=== PATIENT | male | born 1970 | race Caucasian/White ===

== ENCOUNTER 2018-07-27 16:08 | Observation (INO) | payer OTHER ==
[2018-07-27] MEDS ORDERED: ASPIRIN 81 MG CHEWABLE TABLET ONE (16:43)
--- NOTE | 2018-07-27 16:46 | RAD REPORT ---
EXAM DESCRIPTION: RAD - Chest Single View - 07/27/2018 4:38 pm CLINICAL HISTORY: CHEST PAIN Chest pain. COMPARISON: No comparisons FINDINGS: Portable technique limits examination quality. The lungs are grossly clear. The heart is normal in size. Mildly tortuous thoracic aorta. No displace d fractures.Degenerative changes affect both AC joints. IMPRESSION: No acute intrathoracic process suspected.
[2018-07-27 16:50] LABS: Absolute Lymphocytes (CBC) 2.7 K/uL (0.7-4.9); Absolute Monocytes 0.9 K/uL (0.1-1.3); Absolute Neutrophil 6.1 K/uL (1.8-8.0); Basophils % 0.3 % (0-1.3); Eosinophils % 4.6 % (0-4.4); Hematocrit 38.9 % (39.6-49.0); Lymphocytes % 26.6 % (15.3-44.8); Monocytes % 8.8 % (3.3-12.3); RBC Red Blood Cell Count 4.46 M/uL (4.33-5.43)
[2018-07-27 16:51] LABS: Protime INR 1.04
[2018-07-27 17:06] LABS: Barbiturates NEGATIVE (NEGATIVE); Benzodiazepines NEGATIVE (NEGATIVE); Cocaine NEGATIVE (NEGATIVE); METHAMPHETAM NEGATIVE (NEGATIVE); Methadone NEGATIVE (NEGATIVE); Opiates NEGATIVE (NEGATIVE); Phencyclidine NEGATIVE (NEGATIVE); THC Cannibis NEGATIVE (NEGATIVE)
[2018-07-27 17:12] LABS: ALT/SGPT 29 U/L (12-78); AST/SGOT 28 U/L (15-37); Albumin 3.8 g/dL (3.4-5.0); Alkaline Phosphatase 77 U/L (45-117); BUN Blood Urea Nitrogen 14 mg/dL (7-18); Bicarbonate 24 mmol/L (21-32); Bilirubin Direct < 0.1 mg/dL (0-0.2); Bilirubin Total 0.3 mg/dL (0.2-1.0); Glucose Level 86 mg/dL (74-106); Magnesium 2.1 mg/dL (1.8-2.4); NT PRO-BNP 107 pg/mL (<125); Potassium 3.8 mmol/L (3.5-5.1); Protein, Total 7.8 g/dL (6.4-8.2); Sodium Level 139 mmol/L (136-145); Troponin (Emerg Dept Use Only) < 0.02 ng/mL (0.0-0.045)
[2018-07-27 17:29] LABS: Urine Blood NEGATIVE (NEG); Urine Glucose NEGATIVE (NEG); Urine Protein NEGATIVE (NEG); Urine Specific Gravity 1.015 (1.005-1.030); Urine pH 6.5 (5.0-7.0)
--- NOTE | 2018-07-27 18:11 | RAD REPORT ---
EXAM DESCRIPTION: CT - Angio Aorta For Dissection - 07/27/2018 5:58 pm CLINICAL HISTORY: Chest pain radiating to the back. CHEST PAIN COMPARISON: Chest Single View dated 07/27/2018 TECHNIQUE: CT angiography of the aorta was performed with MIPs. All CT scans are performed using dose optimization technique as appropriate and may include automated exposure control or mA/KV adjustment according to patient size. FINDINGS: A left aortic arch is present with normal branching pattern of the great vessels.No acute aortic finding is seen such as aneurysm, penetrating ulcer or dissection. The celiac axis, SMA, ALEYDA and renal arteries are widely patent. No evidence of pulmonary embolism. The lungs are clear. The liver demonstrates no focal mass or biliary dilatation.The spleen is absent. The pancreas, adrena l glands and kidneys are within normal limits for arterial phase imaging. No bowel obstruction, free fluid or abscess.Small fat containing left lower quadrant ventral hernia n oted.No pathologic enlarged lymphadenopathy identified. Prominent lumbar degenerative changes.Hardware is present in the proximal right femur. Central wedging deformity of the L3 vertebral body is present, age undetermined. IMPRESSION: No acute aortic finding is demonstrated. Central wedge compression fracture of L3 vertebral body, age undetermined, however may be acute or sharma bacute in time frame. MR imaging could be obtained for further clarification.
[2018-07-27] MEDS ORDERED: METOPROLOL TAR 25 MG TAB ONE (18:35)
--- NOTE | 2018-07-27 19:25 | ER ---
Nurse's Notes [facility] Name: Ruddy Goff Age: 47 yrs Sex: Male : 1970 Arrival Date: 07/27/2018 Time: 16:12 Bed 8 Private MD: Diagnosis: Chest pain, unspecified Presentation: 07/27 16:14 Presenting complaint: EMS states: INTERMITTENT CHEST PAIN x3 HR. Transition of care: bp TDCJ. Onset of symptoms was July 27, 2018 at 13:00. Risk Assessment: Do you want to hurt yourself or someone else? Patient reports no desire to harm self or others. Initial Sepsis Screen: Does the patient meet any 2 criteria? No. Patient's initial sepsis screen is negative. Does the patient have a suspected source of infection? No. Patient's initial sepsis screen is negative. Care prior to arrival: None. 16:14 Method Of Arrival: EMS: [facility] bp 16:14 Acuity: JUSTINA 2 bp Triage Assessment: 16:25 General: Behavior is. General: Appears in no apparent distress. comfortable, obese, bp Behavior is calm, cooperative, appropriate for age. Pain: Complains of pain in chest Pain currently is 5 out of 10 on a pain scale. at worst was 10 out of 10 on a pain scale. EENT: No deficits noted. Neuro: Level of Consciousness is awake, alert, obeys commands, Oriented to person, place, time, situation, Appropriate for age. Cardiovascular: No deficits noted. Rhythm is sinus rhythm. Respiratory: Airway is patent Respiratory effort is even, unlabored, Respiratory pattern is regular, symmetrical. GI: No signs and/or symptoms were reported involving the gastrointestinal system. : No signs and/or symptoms were reported regarding the genitourinary system. Derm: No deficits noted. Musculoskeletal: Circulation, motion, and sensation intact. Range of motion: intact in all extremities. Historical: - Allergies: 16:25 No Known Allergies; bp - Home Meds: 16:25 aspirin 81 mg Oral chew 1 tab once daily [Active]; atorvastatin 40 mg oral tab 1 tab bp once daily [Active]; hydrochlorothiazide 25 mg Oral tab 1 tab once daily [Active]; lactulose 10 gram/15 mL (15 mL) Oral soln 30 mL once daily [Active]; - PMHx: 16:25 Hypertension; Hyperlipidemia; Hernia; Hepatitis; bp - Immunization history:: Adult Immunizations up to date. - Social history:: Smoking status: Patient/guardian denies using tobacco. - Ebola Screening: : Patient negative for fever greater than or equal to 101.5 degrees Fahrenheit, and additional compatible Ebola Virus Disease symptoms Patient denies exposure to infectious person Patient denies travel to an Ebola-affected area in the 21 days before illness onset No symptoms or risks identified at this time. Screenin:42 Abuse screen: Denies threats or abuse. Denies injuries from another. Nutritional aj screening: No deficits noted. Tuberculosis screening: No symptoms or risk factors identified. Fall Risk None identified. Assessment: 16:40 General: Appears in no apparent distress. comfortable, Behavior is calm, cooperative, aj appropriate for age. Neuro: Level of Consciousness is awake, alert, obeys commands, Oriented to person, place, time, situation, Appropriate for age. Neuro: Reports paresthesias in left arm and left leg. Cardiovascular: Reports chest pain, Capillary refill < 3 seconds in bilateral fingers. Respiratory: Airway is patent Respiratory effort is even, unlabored, Respiratory pattern is regular, symmetrical. Derm: Skin is intact, is healthy with good turgor, Skin is pink, warm \T\ dry. normal. 19:45 General: Appears in no apparent distress. Behavior is calm, cooperative, appropriate ea for age. General: Pt complaining of headache, provider notified, medication order obtained, medication administered. Pt tolerated well. . Neuro: Level of Consciousness is awake, alert, obeys commands, Oriented to person, place, time, situation, Appropriate for age. Cardiovascular: Patient's skin is warm and dry. Respiratory: Airway is patent Respiratory effort is even, unlabored, Respiratory pattern is regular, symmetrical. GI: Abdomen is non-distended. Derm: Skin is pink, warm \T\ dry. 20:50 Reassessment: Patient and/or family updated on plan of care and expected duration. Pain ea level reassessed. Patient is alert, oriented x 3, equal unlabored respirations, skin warm/dry/pink. 21:14 Reassessment: Patient and/or family updated on plan of care and expected duration. Pain ea level reassessed. Patient is alert, oriented x 3, equal unlabored respirations, skin warm/dry/pink. Patient denies pain at this time. 22:29 Reassessment: Report called to receiving nurse on fourth floor. ea 23:04 Reassessment: Patient and/or family updated on plan of care and expected duration. Pain ea level reassessed. Patient is alert, oriented x 3, equal unlabored respirations, skin warm/dry/pink. Patient denies pain at this time. 23:48 Reassessment: Patient and/or family updated on plan of care and expected duration. Pain ea level reassessed. Patient is alert, oriented x 3, equal unlabored respirations, skin warm/dry/pink. Patient denies pain at this time. Vital Signs: 16:32 BP 135 / 81; Pulse 83; Resp 16; Temp 98; Pulse Ox 97% ; Weight 112.04 kg; Height 5 ft. bp 10 in. (177.80 cm); 16:55 BP 139 / 89 LA; jb1 16:55 BP 132 / 93 RA; jb1 18:55 BP 132 / 89; Pulse 84; Resp 17; Pulse Ox 99% on R/A; aj 21:00 BP 128 / 80; Pulse 75; Resp 18; Pulse Ox 99% ; ea 22:31 BP 121 / 80; Pulse 78; Resp 18; Temp 98.2; Pulse Ox 99% on R/A; ea 23:03 BP 117 / 73; Pulse 68; Resp 18; Pulse Ox 97% on R/A; ea 23:49 BP 113 / 70; Pulse 67; Resp 18; Pulse Ox 97% on R/A; ea 16:32 Body Mass Index 35.44 (112.04 kg, 177.80 cm) bp ED Course: 16:12 Patient arrived in ED. cp 16:13 Alistair Lopez MD is Attending Physician. binh 16:14 Alistair Adhikari PA is PHCP. cp 16:14 Juan Pablo Garland, RN is Primary Nurse. bp 16:16 Triage completed. bp 16:31 Arm band placed on. bp 16:38 XRAY Chest (1 view) In Process Unspecified. EDMS 16:42 Bed in low position. Call light in reach. Side rails up X2. guards with patient. aj 16:44 Maintain EMS IV. Dressing intact. Good blood return noted. Site clean \T\ dry. Gauge \T\ aj site: 20 to right AC. IV is patent, is intact. 16:52 Urine collected: clean catch specimen, clear, kenney colored, EKG done, by ED staff, jb1 reviewed by Alistair DUBOSE. 17:58 CT Aorta for Dissection In Process Unspecified. EDMS 18:05 CT completed. Patient tolerated procedure well. Patient moved back from CT. kw1 19:25 Abhijit Carrington MD is Hospitalizing Provider. cp 21:14 No provider procedures requiring assistance completed. Patient admitted, IV remains in ea place. 21:33 Primary Nurse role handed off by Juan Pablo Garland, PAMELA ed1 22:29 Tiffanie Raya, RN is Primary Nurse. ea Administered Medications: 16:36 CANCELLED (dose changed): Aspirin Chewable Tablet 324 mg PO once; 81 mg tablets x 4 aj 16:37 Drug: Aspirin 162 mg Route: PO; aj 17:22 Follow up: Response: No adverse reaction aj 18:30 Drug: Metoprolol 25 mg Route: PO; aj 19:50 Follow up: Response: No adverse reaction ea 19:49 Drug: Tylenol 1000 mg Route: PO; ea 20:30 Follow up: Response: No adverse reaction; Pain is decreased ea Outcome: 19:25 Decision to Hospitalize by Provider. cp 20:00 Instructed on the need for admit. ea 23:48 Condition: stable ea 23:52 Admitted to Med/surg accompanied by tech, room 427, with chart, Report called to ea Receiving nurse on fourth floor 23:54 Patient left the ED. ea Signatures: Dispatcher [employer] EDMS Juan Champagne jb1 Macey Calderon RN RN aj Anderson, Corey, MD MD cha Riggs, Erika, RECEPTION MANAGER RECEPTION MANAGER ed1 Alistair Adhikari PA PA cp Antunez, Elena, Juan Pablo Anderson RN, ea, RN RN bp Wilhelm, Kimberly kw1
--- NOTE | 2018-07-27 19:26 | EDPHYS ---
Physician Documentation [facility] Name: Ruddy Goff Age: 47 yrs Sex: Male : 1970 Arrival Date: 07/27/2018 Time: 16:12 Bed 8 Private MD: ED Physician Alistair Lopez HPI: 07/27 16:15 This 47 yrs old Male presents to ER via Unassigned with complaints of chest cp pain. 16:15 The patient or guardian reports chest pain that is located primarily in the substernal cp area. 16:15 Onset: today, and improved just prior to arrival. The pain radiates to back. Associated cp signs and symptoms: Pertinent negatives: abdominal pain, cough, diaphoresis, lower extremity pain, lower extremity swelling, recent travel, syncope. Patient is a [facility] resident who reports retrosternal chest pain that started today. Patient given 2 sublingual nitro prior to arrival and now reports pain resolved. Historical: - Allergies: 16:25 No Known Allergies; bp - Home Meds: 16:25 aspirin 81 mg Oral chew 1 tab once daily [Active]; atorvastatin 40 mg oral tab 1 tab bp once daily [Active]; hydrochlorothiazide 25 mg Oral tab 1 tab once daily [Active]; lactulose 10 gram/15 mL (15 mL) Oral soln 30 mL once daily [Active]; - PMHx: 16:25 Hypertension; Hyperlipidemia; Hernia; Hepatitis; bp - Immunization history:: Adult Immunizations up to date. - Social history:: Smoking status: Patient/guardian denies using tobacco. - Ebola Screening: : Patient negative for fever greater than or equal to 101.5 degrees Fahrenheit, and additional compatible Ebola Virus Disease symptoms Patient denies exposure to infectious person Patient denies travel to an Ebola-affected area in the 21 days before illness onset No symptoms or risks identified at this time. ROS: 16:20 Constitutional: Negative for body aches, chills, fever, poor PO intake. cp 16:20 Eyes: Negative for injury, pain, redness, and discharge. cp 16:20 Neck: Negative for pain with movement, pain at rest, stiffness, tenderness, bony cp tenderness. 16:20 Cardiovascular: Positive for chest pain, Negative for edema, palpitations. 16:20 Respiratory: Negative for cough, dyspnea on exertion, shortness of breath, wheezing. 16:20 Abdomen/GI: Negative for abdominal pain, nausea, vomiting, and diarrhea, constipation, black/tarry stool, rectal bleeding. 16:20 Back: Positive for radiated pain, Negative for decreased range of motion. 16:20 : Negative for urinary symptoms. 16:20 Skin: Negative for cellulitis, rash. 16:20 Neuro: Negative for altered mental status, dizziness, headache, loss of consciousness, cp speech changes, syncope, weakness. 16:20 All other systems are negative. Exam: 16:25 Constitutional: The patient appears in no acute distress, alert, awake, cp non-diaphoretic, non-toxic, well developed, well nourished. 16:25 Head/Face: Normocephalic, atraumatic. cp 16:25 Eyes: Periorbital structures: appear normal, Conjunctiva: normal, no exudate, no injection, Sclera: no appreciated abnormality, Lids and lashes: appear normal, bilaterally. 16:25 ENT: External ear(s): are unremarkable, Nose: is normal, Mouth: is normal, Posterior pharynx: is normal, airway is patent, no erythema, no exudate. 16:25 Neck: ROM/movement: is normal, is supple, without pain, no range of motions limitations, no meningismus, no nuchal rigidity. 16:25 Chest/axilla: Inspection: normal, Palpation: is normal, no crepitus, no tenderness. 16:25 Cardiovascular: Rate: normal, Rhythm: regular, Pulses: Pulses are 2+ in right radial artery and left radial artery. Heart sounds: murmur, not appreciated, Edema: is not appreciated, JVD: is not appreciated. 16:25 Respiratory: the patient does not display signs of respiratory distress, Respirations: normal, no use of accessory muscles, no retractions, no splinting, no tachypnea, labored breathing, is not present, Breath sounds: are clear throughout, no decreased breath sounds, no stridor, no wheezing. 16:25 Abdomen/GI: Inspection: abdomen appears normal, Palpation: abdomen is soft and non-tender, in all quadrants, rebound tenderness, is not appreciated, voluntary guarding, is not appreciated, involuntary guarding, is not appreciated. 16:25 Back: pain, that is mild. 16:25 Skin: cellulitis, is not appreciated, no rash present. 16:25 Neuro: Orientation: to person, place \T\ time. Mentation: is normal, Cerebellar function: is grossly normal, Motor: moves all fours, strength is normal, Sensation: no obvious gross deficits. 16:41 ECG was reviewed by the Attending Physician. cp Vital Signs: 16:32 BP 135 / 81; Pulse 83; Resp 16; Temp 98; Pulse Ox 97% ; Weight 112.04 kg; Height 5 ft. bp 10 in. (177.80 cm); 16:55 BP 139 / 89 LA; jb1 16:55 BP 132 / 93 RA; jb1 18:55 BP 132 / 89; Pulse 84; Resp 17; Pulse Ox 99% on R/A; aj 21:00 BP 128 / 80; Pulse 75; Resp 18; Pulse Ox 99% ; ea 22:31 BP 121 / 80; Pulse 78; Resp 18; Temp 98.2; Pulse Ox 99% on R/A; ea 23:03 BP 117 / 73; Pulse 68; Resp 18; Pulse Ox 97% on R/A; ea 23:49 BP 113 / 70; Pulse 67; Resp 18; Pulse Ox 97% on R/A; ea 16:32 Body Mass Index 35.44 (112.04 kg, 177.80 cm) bp MDM: 16:13 Patient medically screened. binh 18:25 The patient was given aspirin in the Emergency Department. cp 18:25 Differential diagnosis: abnormal EKG, acute myocardial infarction, acute pericarditis, cp esophagitis, pancreatitis, pleurisy, pneumonia, pneumothorax, pulmonary embolus, stable angina, thoracic aortic disection, unstable angina. LYNETTE Risk Score: 1- Known CAD, 1 - Recent [<24hrs] Severe Angina. Data reviewed: vital signs, nurses notes, lab test result(s), EKG, radiologic studies, CT scan, plain films, I have discussed the patient's presentation/case with the attending Emergency Department Physician; and as a result, I will admit patient. Test interpretation: by ED physician or midlevel provider: ECG, plain radiologic studies. 19:15 Physician consultation: Abhijit Carrington MD was called at 19:15, was contacted at 19:15, regarding admission, to the telemetry unit. patient's condition. 07/27 16:13 Order name: Basic Metabolic Panel; Complete Time: 17:17 cp 07/27 17:17 Interpretation: Normal except: GFR 81. cp 07/27 16:13 Order name: CBC with Diff; Complete Time: 17:02 cp 07/27 17:02 Interpretation: Normal except: HGB 12.8; HCT 38.9; PLT 421; RDW 15.7; EOSINOPHIL % 4.6. cp 07/27 16:13 Order name: LFT's; Complete Time: 17:17 cp 07/27 18:21 Interpretation: Normal except: GLOB 4.0; A/G 1.0. cp 07/27 16:13 Order name: Magnesium; Complete Time: 17:17 cp 07/27 16:13 Order name: NT PRO-BNP; Complete Time: 17:17 cp 07/27 16:13 Order name: PT-INR; Complete Time: 17:02 cp 07/27 16:13 Order name: Troponin (emerg Dept Use Only); Complete Time: 17:17 cp 07/27 16:20 Order name: UDS; Complete Time: 17:17 cp 07/27 17:00 Order name: Urine Dipstick--Ancillary (enter results); Complete Time: 18:00 ag 07/27 20:32 Order name: Basic Metabolic Panel EDMS 07/27 20:32 Order name: Basic Metabolic Panel EDMS 07/27 20:32 Order name: CBC with Automated Diff EDMS 07/27 20:32 Order name: CBC with Automated Diff EDMS 07/27 20:32 Order name: Lipid Profile EDMS 07/27 16:13 Order name: XRAY Chest (1 view); Complete Time: 17:02 cp 07/27 16:13 Order name: EKG; Complete Time: 16:15 cp 07/27 17:22 Order name: CT Aorta for Dissection; Complete Time: 18:20 cp 07/27 20:32 Order name: CONS Physician Consult EDMS 07/27 20:32 Order name: Heart Healthy EDMS 07/27 20:32 Order name: Echo with Doppler EDMS 07/27 20:32 Order name: EKG Electrocardiogram EDMS 07/27 20:32 Order name: EKG Electrocardiogram EDMS 07/27 20:32 Order name: Lipid Profile EDMS 07/27 20:32 Order name: Troponin I EDMS 07/27 20:32 Order name: Troponin I EDMS 07/27 20:32 Order name: Troponin I EDMS 07/27 16:13 Order name: Cardiac monitoring; Complete Time: 16:53 cp 07/27 16:13 Order name: EKG - Nurse/Tech; Complete Time: 16:53 cp 07/27 16:13 Order name: IV Saline Lock; Complete Time: 16:37 cp 07/27 16:13 Order name: Labs collected and sent; Complete Time: 16:37 cp 07/27 16:13 Order name: O2 Per Protocol; Complete Time: 16:37 cp 07/27 16:13 Order name: O2 Sat Monitoring; Complete Time: 16:37 cp 07/27 16:13 Order name: Blood Pressure Recheck: bilateral upper extremities; Complete Time: 16:53 cp EC:41 Rate is 80 beats/min. Rhythm is regular. ME interval is normal. QRS interval is normal. cp QT interval is normal. Interpreted by me. Reviewed by me. Administered Medications: 16:36 CANCELLED (dose changed): Aspirin Chewable Tablet 324 mg PO once; 81 mg tablets x 4 aj 16:37 Drug: Aspirin 162 mg Route: PO; aj 17:22 Follow up: Response: No adverse reaction aj 18:30 Drug: Metoprolol 25 mg Route: PO; aj 19:50 Follow up: Response: No adverse reaction ea 19:49 Drug: Tylenol 1000 mg Route: PO; ea 20:30 Follow up: Response: No adverse reaction; Pain is decreased ea Disposition: 07/28 07:17 Co-signature as Attending Physician, Alistair Lopez MD I agree with the assessment and [facility] plan of care. Disposition: 07/27/18 19:25 Hospitalization ordered by Abhijit Carrington for Observation. Preliminary diagnosis is Chest pain, unspecified. - Bed requested for Telemetry/MedSurg (observation). - Status is Observation. ea - Condition is Stable. - Problem is new. - Symptoms have improved. UTI on Admission? No Signatures: Dispatcher [employer] [facility] Mulu Colin RN Macey Spence RN RN aj Anderson, Corey, MD MD cha Page, Corey, PA PA cp Antunez, Elena, RN RN ea Peltier, Brian RN RN bp Corrections: (The following items were deleted from the chart) 07/27 16:36 16:20 Aspirin Chewable Tablet 324 mg PO once; 81 mg tablets x 4 ordered. cp aj 21:07 19:25 Hospitalization Ordered by Abhijit Carrington MD for Observation. Preliminary mw diagnosis is Chest pain, unspecified. Bed requested for Telemetry/MedSurg (observation). Status is Observation. Condition is Stable. Problem is new. Symptoms have improved. UTI on Admission? No. cp 23:54 21:07 07/27/2018 19:25 Hospitalization Ordered by Abhijit Carrington MD for Observation. ea Preliminary diagnosis is Chest pain, unspecified. Bed requested for Telemetry/MedSurg (observation). Status is Observation. Condition is Stable. Problem is new. Symptoms have improved. UTI on Admission? No. mw
[2018-07-27] MEDS ORDERED: ACETAMINOPHEN 500 MG TAB ONE (19:54)
[2018-07-27] MEDS ORDERED: ACETAMINOPHEN 500 MG TAB PO PRN (20:28)
[2018-07-27] MEDS ORDERED: ALPRAZOLAM 0.25 MG TABLET PO PRN (20:28)
[2018-07-27] MEDS ORDERED: ZOLPIDEM TARTRATE 5 MG TABLET PO PRN (20:28)
[2018-07-27] MEDS: METOPROLOL TAR 50 MG TAB PO SCH (21:00)
[2018-07-27 23:28] VITALS: BMI 35.4
[2018-07-28 01:00] VITALS: O2SAT 97
[2018-07-28] MEDS: MORPHINE 4 MG/ML SYR IV PRN ×2 (01:56→05:49)
--- NOTE | 2018-07-28 06:26 | EKG ---
Test Date: 2018-07-27 Test Time: 16:35:49 Sewing Department Supervisor: HERB MEASUREMENT RESULTS: Intervals: Rate: 80 MA: 154 QRSD: 96 QT: 394 QTc: 454 [place]: P: 26 MA: 154 QRS: -29 T: 39 INTERPRETIVE STATEMENTS: Normal sinus rhythm Minimal voltage criteria for LVH, may be normal variant Borderline ECG No previous ECG available for comparison Electronically Signed On 07-28-18 06:18:47 PRINTING GREY CLOTH TENDER by Hugo Martinez
[2018-07-28 06:42] LABS: Absolute Lymphocytes (CBC) 2.2 K/uL (0.7-4.9); Absolute Monocytes 0.9 K/uL (0.1-1.3); Absolute Neutrophil 4.5 K/uL (1.8-8.0); Basophils % 1.3 % (0-1.3); Eosinophils % 4.9 % (0-4.4); Hematocrit 39.8 % (39.6-49.0); Lymphocytes % 27.4 % (15.3-44.8); MPV 8.1 fL (7.6-11.3); Monocytes % 11.2 % (3.3-12.3)
[2018-07-28 06:56] LABS: Potassium 4.2 mmol/L (3.5-5.1)
[2018-07-28] MEDS: METOPROLOL TAR 50 MG TAB PO SCH (08:44)
[2018-07-28] MEDS ORDERED: ASPIRIN 325 MG TAB PO SCH (09:00)
[2018-07-28] MEDS ORDERED: ENOXAPARIN 40 MG/0.4 ML SQ SCH (09:00)
[2018-07-28 09:36] VITALS: TEMP 97.9
--- NOTE | 2018-07-28 10:22 | P.HP ---
Certification for Inpatient Patient admitted to: Observation With expected LOS: <2 Midnights Patient will require the following post-hospital care: None Practitioner: I am a practitioner with admitting privileges, knowledge of patient current condition, hospital course, and medical plan of care. Services: Services provided to patient in accordance with Admission requirements found in Title 42 Section 412.3 of the Code of Federal Regulations Patient History Date of Service: 07/27/18 Reason for admission: Chest pain rule out acute coronary syndrome History of Present Illness: If patient is a 47-year-old gentleman who came into the hospital with chest pain. Pain was mainly in the sternal region. The was radiation to his left arm. He was brought into the hospital for evaluation. Attempted transfer to [facility] but the was no beds. Patient was ruled out for acute coronary syndromes. EKGs and troponins were negative. Patient be admitted for observation. Allergies No Known Allergies Allergy (Verified 07/27/18 22:38) Home Medications: Aspirin Chewable [Aspirin Chewable*] 81 mg PO DAILY 07/27/18 Atorvastatin Calcium 40 mg PO DAILY 07/27/18 Lactulose 10 gm PO DAILY 07/27/18 hydroCHLOROthiazide [Hydrochlorothiazide] 25 mg PO DAILY 07/27/18 - Past Medical/Surgical History Has patient received pneumonia vaccine in the past: No Diabetic: No -: HTN -: Hep C -: High Cholesterol -: Hernia -: Splenectomy - Family History Father Medical History: Heart disease - Social History Smoking Status: Unknown if ever smoked Alcohol use: No CD- Drugs: No Caffeine use: Yes Review of Systems 10-point ROS is otherwise unremarkable Physical Examination - Vital Signs Temperature: 97.9 F Blood Pressure: 142/70 Pulse: 66 Respirations: 18 Pulse Ox (%): 96 - Physical Exam General: Alert, In no apparent distress, Oriented x3 HEENT: Atraumatic, PERRLA, Mucous membr. moist/pink, EOMI, Sclerae nonicteric Neck: Supple, 2+ carotid pulse no bruit, No LAD, Without JVD or thyroid abnormality Respiratory: Clear to auscultation bilaterally, Normal air movement Cardiovascular: Regular rate/rhythm, Normal S1 S2, No murmurs Gastrointestinal: Normal bowel sounds, Soft and benign, Non-distended, No tenderness Musculoskeletal: No clubbing, No swelling, No tenderness Integumentary: No rashes Neurological: Normal gait, Normal speech, Normal strength at 5/5 x4 extr, Normal tone, Sensation intact, Cranial nerves 3-12 intact, Normal affect Lymphatics: No axilla or inguinal lymphadenopathy - Studies Laboratory Data (last 24 hrs) 07/27/18 16:30: PT 12.3, INR 1.04 07/27/18 16:30: WBC 10.3, Hgb 12.8 L, Hct 38.9 L, Plt Count 421 H 07/27/18 16:30: Sodium 139, Potassium 3.8, BUN 14, Creatinine 0.98, Glucose 86, Magnesium 2.1, Total Bilirubin 0.3, AST 28, ALT 29, Alkaline Phosphatase 77 Assessment & Plan - Problems (Diagnosis) (1) Chest pain, rule out acute myocardial infarction Current Visit: Yes Status: Acute (2) Hypertension Current Visit: Yes Status: Acute - Plan 1. Serial troponins and EKG 2. Cardiology consultation 3. Echocardiogram and outpt stress test if cardiology is agreeable 4. Anti-platelet therapy, anti coagulation, beta-charlene, statin, and O2 as needed 5. IV morphine for pain 6. Nitro p.r.n. Discharge Plan: Home Plan to discharge in: 24 Hours - Advance Directives Does patient have a Living Will: No Does patient have a Durable POA for Healthcare: No - Code Status/Comfort Care Code Status Assessed: Yes Code Status: Full Code Critical Care: No Time Spent Managing PTS Care (In Minutes): 50
[2018-07-28 12:25] VITALS: BP 133/92
--- NOTE | 2018-07-28 12:42 | ECHO ---
HEIGHT: 5 ft 10 in WEIGHT: 247 lb 0 oz DATE OF STUDY: 07/28/[address]: Abhijit Carrington MD 2-DIMENSIONAL: YES M.MODE: YES DOPPLER: YES COLOR FLOW: YES TDS: PORTABLE: DEFINITY: BUBBLE STUDY: DIAGNOSIS: CHEST PAIN, RULE OUT ACUTE CORNARY SYNDROME CARDIAC HISTORY: CATHERIZATION: NO SURGERY: NO PROSTHETIC VALVE: NO PACEMAKER: NO MEASUREMENTS (cm) DIASTOLIC (NORMALS) SYSTOLIC (NORMALS) IVSd 1.0 (0.6-1.2) LA Diam 4.0 (1.9-4.0) LVEF 50% LVIDd 4.2 (3.5-5.7) LVIDs 3.2 (2.0-3.5) %FS 25% LVPWd 1.1 (0.6-1.2) Ao Diam 2.7 (2.0-3.7) 2 DIMENSIONAL ASSESSMENT: RIGHT ATRIUM: NORMAL LEFT ATRIUM: NORMAL RIGHT VENTRICLE: NORMAL LEFT VENTRICLE: NORMAL TRICUSPID VALVE: NORMAL MITRAL VALVE: NORMAL PULMONIC VALVE: NORMAL AORTIC VALVE: NORMAL PERICARDIAL EFFUSION: NONE AORTIC ROOT: NORMAL LEFT VENTRICULAR WALL MOTION: NORMAL DOPPLER/COLOR FLOW: NORMAL COMMENTS: NORMAL TWO DIMENSIONAL ECHOCARDIOGRAM WITH DOPPLER. TECHNOLOGIST: TAMIKO CARABALLO
--- NOTE | 2018-07-28 12:53 | EKG ---
Test Date: 2018-07-28 Test Time: 07:41:43 Waiver Analyst: BEATRIZ MEASUREMENT RESULTS: Intervals: Rate: 64 [place]: 164 QRSD: 100 QT: 416 QTc: 429 [place]: P: 33 [place]: 164 QRS: -28 T: 15 INTERPRETIVE STATEMENTS: Normal sinus rhythm Normal ECG Compared to ECG 07/27/2018 16:35:49 Left ventricular hypertrophy no longer present Electronically Signed On 07-28-18 12:52:45 FIELD ARTILLERY RADAR OPERATOR by Hugo Martinez
--- NOTE | 2018-07-28 16:30 | P.SSS ---
Patient History Date of Service: 07/28/18 Reason for admission: Chest pain rule out acute coronary syndrome History of Present Illness: If patient is a 47-year-old gentleman who came into the hospital with chest pain. Pain was mainly in the sternal region. The was radiation to his left arm. He was brought into the hospital for evaluation. Attempted transfer to [facility] but the was no beds. Patient was ruled out for acute coronary syndromes. EKGs and troponins were negative. Patient be admitted for observation. Allergies No Known Allergies Allergy (Verified 07/27/18 22:38) Home Medications: Aspirin Chewable [Aspirin Chewable*] 81 mg PO DAILY 07/27/18 Atorvastatin Calcium 40 mg PO DAILY 07/27/18 Lactulose 10 gm PO DAILY 07/27/18 hydroCHLOROthiazide [Hydrochlorothiazide] 25 mg PO DAILY 07/27/18 - Past Medical/Surgical History Has patient received pneumonia vaccine in the past: No Diabetic: No -: HTN -: Hep C -: High Cholesterol -: Hernia -: Splenectomy - Family History Father -: Heart disease - Social History Smoking Status: Unknown if ever smoked Alcohol use: No CD- Drugs: No Caffeine use: Yes Review of Systems 10-point ROS is otherwise unremarkable Physical Examination - Vital Signs Temperature: 97.9 F Blood Pressure: 133/92 Pulse: 62 Respirations: 18 Pulse Ox (%): 98 - Physical Exam General: Alert, In no apparent distress HEENT: Atraumatic, PERRLA, Mucous membr. moist/pink, EOMI, Sclerae nonicteric Neck: Supple, 2+ carotid pulse no bruit, No LAD, Without JVD or thyroid abnormality Respiratory: Clear to auscultation bilaterally, Normal air movement Cardiovascular: Regular rate/rhythm, Normal S1 S2 Gastrointestinal: Normal bowel sounds, No tenderness Musculoskeletal: No tenderness Integumentary: No rashes Neurological: Normal gait, Normal speech, Normal strength at 5/5 x4 extr, Normal tone, Normal affect Lymphatics: No axilla or inguinal lymphadenopathy - Studies Laboratory Data (last 24 hrs) 07/27/18 16:30: PT 12.3, INR 1.04 07/27/18 16:30: WBC 10.3, Hgb 12.8 L, Hct 38.9 L, Plt Count 421 H 07/27/18 16:30: Sodium 139, Potassium 3.8, BUN 14, Creatinine 0.98, Glucose 86, Magnesium 2.1, Total Bilirubin 0.3, AST 28, ALT 29, Alkaline Phosphatase 77 - Diagnosis (Problem(s)) (1) Chest pain, rule out acute myocardial infarction Status: Acute (2) Hypertension Status: Acute Treatment Summary: Overall during the hospital stay patient remained stable Patient was initially admitted to the hospital for chest pain rule out ACS. Patient had echocardiogram done here in the hospital which was within normal limits. Cardiology was consulted who recommended the patient can safely be discharged home as her troponin x2 is been negative no EKG changes and her ankle is within normal limits. Cardiology will follow up with patient outpatient to do outpatient stress test if needed. No other complications were noted while here in the hospital and patient then was discharged home under stable condition. - Disposition Disposition: ROUTINE DISCHARGE Condition: GOOD Patient Discharge Instructions: Please f.u with PCP and Cardiology in 2 week post discharge. No New medication Diet: Regular Activity: Ad dory
== END 2018-07-28 13:52 ==
LOC: ER 16:08 → ERHOLD 20:33 → 4TH 22:31
PROVIDERS: ADMIT Hospitalist; ATTEND Hospitalist
DX: R07.9 Chest pain, unspecified (principal); I10 Essential (primary) hypertension; Z79.82 Long term (current) use of aspirin; Z86.19 Personal history of other infectious and parasitic diseases
CPT/HCPCS: 36415; 71045; 71275; 74175; 80048; 80061; 80076; 80307; 81003; 83735; 83880; 84484; 85025; 85610; 93005; 93306; 99285; G0378; J1650; Q9967

== ENCOUNTER 2020-11-10 13:09 | Emergency (ER) | payer OTHER ==
--- NOTE | 2020-11-10 13:39 | EDPHYS ---
Physician Documentation [facility] Name: Ruddy Goff Age: 50 yrs Sex: Male : 1970 Arrival Date: 11/10/2020 Time: 13:17 Bed 28 Private MD: ED Physician Catarino Zapata HPI: 11/10 13:34 This 50 yrs old Male presents to ER via EMS with complaints of Choked/Choking.rn 13:34 The patient or guardian reports the patient has a suspected foreign body, of the rn throat. The reported likely foreign body is candy - fireball. Onset: The symptoms/episode began/occurred just prior to arrival. Current symptoms: none. The patient has not experienced similar symptoms in the past. The patient has not recently seen a physician. Reports ate fireball candy, someone bumped into him, then got stuck in throat, tried to drink water and unable to swallow, no sob, some cough. Now when picked up into bed, felt like he swallowed it, FB sensation resolved. No sob, No cough. . Historical: - Allergies: 13:25 No Known Allergies; zb - Home Meds: 13:25 hydrochlorothiazide 25 mg Oral tab 1 tab once daily [Active]; gemfibrozil 600 mg Oral zb tab 1 tab 2 times per day [Active]; meloxicam 15 mg oral tab [Active]; omeprazole 20 mg Oral cpDR 1 cap once daily [Active]; Thera-Derm topical lotn [Active]; - PMHx: 13:25 Hepatitis; Hernia; Hyperlipidemia; Hypertension; zb - Immunization history:: Adult Immunizations up to date. - Social history:: Smoking status: Patient denies any tobacco usage or history of. - Family history:: not pertinent. - Hospitalizations: : No recent hospitalization is reported. ROS: 13:34 Constitutional: Negative for fever, chills, and weight loss, ENT: + candy stuck in rn throat Neck: Negative for injury, pain, and swelling, Cardiovascular: Negative for chest pain, palpitations, and edema, Respiratory: Negative for shortness of breath, cough, wheezing, and pleuritic chest pain, Abdomen/GI: Negative for abdominal pain, nausea, vomiting, diarrhea, and constipation, MS/Extremity: Negative for injury and deformity, Skin: Negative for injury, rash, and discoloration, Neuro: Negative for headache, weakness, numbness, tingling, and seizure. Exam: 13:34 Constitutional: This is a well developed, well nourished patient who is awake, alert, rn and in no acute distress. ENT: NO stridor, no foreign body, no swelling, handling secretions just fine Cardiovascular: Regular rate and rhythm. No pulse deficits. Respiratory: No increased work of breathing, no retractions or nasal flaring. Vital Signs: 13:22 BP 130 / 77; Pulse 87; Resp 16; Temp 98.1; Pulse Ox 96% on R/A; Weight 110.68 kg; zb Height 5 ft. 11 in. (180.34 cm); Pain 0/10; 13:22 Body Mass Index 34.03 (110.68 kg, 180.34 cm) zb MDM: 13:24 Patient medically screened. rn 13:34 Data reviewed: vital signs, nurses notes, and as a result, I will discharge patient. rn Counseling: I had a detailed discussion with the patient and/or guardian regarding: the historical points, exam findings, and any diagnostic results supporting the discharge/admit diagnosis, the need for outpatient follow up, to return to the emergency department if symptoms worsen or persist or if there are any questions or concerns that arise at home. Response to treatment: the patient's symptoms have markedly improved after treatment, and as a result, I will discharge patient. Special discussion: I discussed with the patient/guardian in detail that at this point there is no indication for admission to the hospital. It is understood, however, that if the symptoms persist or worsen the patient needs to return immediately for re-evaluation. ED course: Foreign body seems resolved, felt like he swallowed it, able to fully drink cup of water without difficulty, no sob, no wheezing or stridor, feels fine now. Will dc home without intervention.. 11/10 13:33 Order name: PO challenge; Complete Time: 13:39 rn Administered Medications: No medications were administered Disposition: 11/10/20 13:39 Discharged to Home. Impression: Superficial foreign body of throat - Spontaneously resolved. - Condition is Stable. - Discharge Instructions: Choking, Adult. - Medication Reconciliation Form, Thank You Letter, Antibiotic Education, Prescription Opioid Use form. - Follow up: Private Physician; When: As needed; Reason: Recheck today's complaints, Re-evaluation by your physician. - Problem is new. - Symptoms are resolved. Signatures: Catarino Zapata MD MD rn Brown, PAMELA Galeas RN Corrections: (The following items were deleted from the chart) 13:45 13:39 11/10/2020 13:39 Discharged to Home. Impression: Superficial foreign body of zb throat - Spontaneously resolved. Condition is Stable. Forms are Medication Reconciliation Form, Thank You Letter, Antibiotic Education, Prescription Opioid Use. Follow up: Private Physician; When: As needed; Reason: Recheck today's complaints, Re-evaluation by your physician. Problem is new. Symptoms are resolved. rn
--- NOTE | 2020-11-10 13:39 | ER ---
Nurse's Notes [facility] Name: Ruddy Goff Age: 50 yrs Sex: Male : 1970 Arrival Date: 11/10/2020 Time: 13:17 Bed 28 Private MD: Diagnosis: Superficial foreign body of throat-Spontaneously resolved Presentation: 11/10 13:18 Chief complaint: EMS states: patient choked on a fire ball piece of candy. VSS stable. zb but felt like the candy was stuck in his throat. Since being here patient issue has resolved. Coronavirus screen: At this time, the client does not indicate any symptoms associated with coronavirus-19. Ebola Screen: No symptoms or risks identified at this time. Initial Sepsis Screen: Does the patient meet any 2 criteria? No. Patient's initial sepsis screen is negative. Does the patient have a suspected source of infection? No. Patient's initial sepsis screen is negative. Risk Assessment: Do you want to hurt yourself or someone else? Patient reports no desire to harm self or others. Onset of symptoms was November 10, 2020. 13:18 Acuity: JUSTINA 4 zb 13:18 Method Of Arrival: EMS: [facility] zb Triage Assessment: 13:25 General: Appears in no apparent distress. comfortable, Behavior is calm, cooperative, zb appropriate for age. Pain: Denies pain. EENT: Reports mouth soreness. . Neuro: Level of Consciousness is awake, alert, obeys commands, Oriented to person, place, time, situation. Cardiovascular: Patient's skin is warm and dry. Respiratory: Airway Respiratory effort is even, unlabored, Respiratory pattern is regular, symmetrical. GI: Abdomen is round. Derm: Skin is intact, is healthy with good turgor, Skin is dry, Skin is normal. Musculoskeletal: Range of motion: intact in all extremities. Historical: - Allergies: 13:25 No Known Allergies; zb - Home Meds: 13:25 hydrochlorothiazide 25 mg Oral tab 1 tab once daily [Active]; gemfibrozil 600 mg Oral zb tab 1 tab 2 times per day [Active]; meloxicam 15 mg oral tab [Active]; omeprazole 20 mg Oral cpDR 1 cap once daily [Active]; Thera-Derm topical lotn [Active]; - PMHx: 13:25 Hepatitis; Hernia; Hyperlipidemia; Hypertension; zb - Immunization history:: Adult Immunizations up to date. - Social history:: Smoking status: Patient denies any tobacco usage or history of. - Family history:: not pertinent. - Hospitalizations: : No recent hospitalization is reported. Screenin:28 Abuse screen: Denies threats or abuse. Denies injuries from another. Nutritional zb screening: No deficits noted. Tuberculosis screening: No symptoms or risk factors identified. Fall Risk None identified. Assessment: 13:29 Reassessment: see triage note. zb 13:29 Reassessment: ecp at bedside. zb 13:38 Reassessment: PO challenge completed. no issues. patient was able to drink water with zb n/v. stated he had a little throat discomfort. notified ECP. 13:45 Reassessment: d/c with parole officers. patient ambulated out. gait steady and even. zb Vital Signs: 13:22 BP 130 / 77; Pulse 87; Resp 16; Temp 98.1; Pulse Ox 96% on R/A; Weight 110.68 kg; zb Height 5 ft. 11 in. (180.34 cm); Pain 0/10; 13:22 Body Mass Index 34.03 (110.68 kg, 180.34 cm) zb ED Course: 13:17 Patient arrived in ED. zb 13:20 Triage completed. zb 13:24 Catarino Zapata MD is Attending Physician. rn 13:27 Patient has correct armband on for positive identification. Placed in gown. Bed in low zb position. Call light in reach. Side rails up X 1. Pulse ox on. NIBP on. 13:28 Arm band placed on. zb 13:37 Gudelia Birch, RN is Primary Nurse. zb 13:41 No provider procedures requiring assistance completed. Patient did not have IV access zb during this emergency room visit. Administered Medications: No medications were administered Outcome: 13:39 Discharge ordered by . rn 13:41 Discharged to Law Enforcement zb 13:41 Condition: improved 13:41 Discharge instructions given to patient, police, Instructed on discharge instructions, follow up and referral plans. medication usage, Demonstrated understanding of instructions, follow-up care. 13:45 Patient left the ED. zb Signatures: Catarino Zapata MD MD rn Brown, Zipporah, PAMELA RN zb
[2020-11-10 13:58] VITALS: BP 130/77; TEMP 98.1; O2SAT 96
== END 2020-11-10 13:45 | disposition home or self-care (01) ==
LOC: ER 13:09
DX: S10.15XA Superficial foreign body of throat, initial encounter (principal); I10 Essential (primary) hypertension; E78.5 Hyperlipidemia, unspecified
CPT/HCPCS: 99283